=== PATIENT | female | born 1950 | race Caucasian/White ===

== ENCOUNTER 2021-04-02 06:20 | Emergency (ER) | payer MEDICARE ==
[~2021-04-02] VITALS: Ht 167.6 cm; Wt 77.1 kg
[2021-04-02 06:57] LABS: BASOPHILS # (AUTO) 0.1 (0.0-0.1); BASOPHILS % 0.7 % (0.0-1.0); EOSINOPHILS # (AUTO) 0.2 (0.0-0.4); EOSINOPHILS % 2.1 % (0.0-6.0); HEMATOCRIT 45.8 % (34.2-44.1); HEMOGLOBIN 14.4 g/dL (12.0-16.0); LYMPHOCYTES # (AUTO) 2.2 (1.0-3.2); LYMPHOCYTES % 25.9 % (18.0-39.1); MEAN CORPUSCULAR HEMOGLOBIN 26.3 pg (28-32); MEAN CORPUSCULAR HGB CONC 31.4 g/dL (31-35); MEAN CORPUSCULAR VOLUME 83.6 fL (81-99); MONOCYTES # (AUTO) 0.6 (0.2-0.8); MONOCYTES % 6.6 % (4.4-11.3); NEUTROPHILS # (AUTO) 5.5 (2.1-6.9); NEUTROPHILS % 64.5 % (38.7-80.0); PLATELET COUNT 282 x10e3/uL (140-360); RED BLOOD COUNT 5.48 x10e6/uL (3.6-5.1); RED CELL DISTRIBUTION WIDTH 16.5 % (11.7-14.4)
[2021-04-02] MEDS ORDERED: LEVETIRACETAM 500MG/5ML VIAL 1,000 MG in SODIUM CHLORIDE 0.9% 100 ML IV ONE (07:00)
[2021-04-02] MEDS ORDERED: LORAZEPAM INJ 2 MG/ML VIAL IV ONE (07:00)
[2021-04-02] MEDS ORDERED: HYDRALAZINE HCL 20 MG/ML VIAL IV ONE (07:00)
[2021-04-02 07:16] LABS: CLARITY,URINE TURBID (CLEAR); COLOR,URINE YELLOW (YELLOW)
[2021-04-02 07:17] LABS: KETONES,URINE NEGATIVE (NEGATIVE); LEUKOCYTE ESTERASE ,URINE TRACE (NEGATIVE); NITRITE,URINE NEGATIVE (NEGATIVE); PROTEIN,URINE DIPSTICK 2+ (NEGATIVE); URINE UROBILINOGEN 0.2 mg/dL (0.2 - 1)
[2021-04-02 07:23] LABS: ALBUMIN 4.4 g/dL (3.5-5.0); ALBUMIN/GLOBULIN RATIO 1.1 (0.8-2.0); ANION GAP 16.1 mmol/L (8-16); CALCIUM 9.7 mg/dL (8.4-10.2); CREATININE, SERUM 1.02 mg/dL (0.57-1.11); POTASSIUM 4.1 mmol/L (3.5-5.1)
[2021-04-02 07:52] LABS: BACTERIA,URINE MANY /HPF; EPITHELIAL CELLS,URINE MODERATE /LPF
[2021-04-02] MEDS ORDERED: CEFTRIAXONE 1 GM in SODIUM CHLORIDE 0.9% 50ML 50 ML IV ONE (08:30)
[2021-04-02] MEDS ORDERED: CEPHALEXIN500 MG PO (09:38)
[2021-04-02] MEDS ORDERED: IBUPROFEN600 MG PO (09:38)
[2021-04-02 10:04] VITALS: BP 162/87
== END 2021-04-02 10:06 | disposition home or self-care (01) ==
LOC: ER 06:30
DX: G40.A09 Absence epileptic syndrome, not intractable, without status epilepticus (principal); N39.0 Urinary tract infection, site not specified; R10.30 Lower abdominal pain, unspecified; R51.9 Headache, unspecified; Z20.822 Contact with and (suspected) exposure to COVID-19
CPT/HCPCS: 36415; 70450; 74176; 80053; 81001; 83605; 83690; 85025; 87086; 87186; 99284; J0696; J1953; J2060; J7050; U0002